=== PATIENT | female | born 1995 | race Caucasian/White ===

== ENCOUNTER 2018-11-20 10:45 | Emergency (ER) | payer OTHER ==
[~2018-11-20] VITALS: Ht 160 cm; Wt 63.6 kg
[2018-11-20 11:20] VITALS: Ht 160 cm; Wt 63.6 kg
[2018-11-20 13:50] VITALS: BP 118/69
== END 2018-11-20 13:50 | disposition home or self-care (01) ==
LOC: ED 10:45
DX: J02.8 Acute pharyngitis due to other specified organisms (principal); Z98.890 Other specified postprocedural states
CPT/HCPCS: J0561; Q0162

== ENCOUNTER 2019-02-25 15:56 | Emergency (ER) | payer OTHER ==
[~2019-02-25] VITALS: Ht 160 cm; Wt 64.0 kg
[2019-02-25 16:04] VITALS: Ht 160 cm; Wt 64.0 kg
[2019-02-25 17:34] VITALS: BP 115/70
== END 2019-02-25 17:34 | disposition home or self-care (01) ==
LOC: ED 15:56
DX: J02.9 Acute pharyngitis, unspecified (principal)

== ENCOUNTER 2019-04-08 10:31 | Emergency (ER) | payer OTHER ==
[~2019-04-08] VITALS: Ht 162.6 cm; Wt 63.5 kg
[2019-04-08 10:36] VITALS: Ht 162.6 cm; Wt 63.5 kg
[2019-04-08 11:16] VITALS: BP 130/79
== END 2019-04-08 11:16 | disposition home or self-care (01) ==
LOC: ED 10:31
DX: J03.90 Acute tonsillitis, unspecified (principal)

== ENCOUNTER 2019-09-01 11:59 | Emergency (ER) | payer OTHER ==
[~2019-09-01] VITALS: Ht 157.5 cm; Wt 65.8 kg
[2019-09-01 12:15] VITALS: Ht 157.5 cm; Wt 65.8 kg
[2019-09-01 15:49] VITALS: BP 114/75
== END 2019-09-01 15:49 | disposition home or self-care (01) ==
LOC: ED 11:59
DX: B37.3 Candidiasis of vulva and vagina (principal)